=== PATIENT | male | born 1955 | race Caucasian/White ===

== ENCOUNTER → 2018-08-05 10:29 | Outpatient (CLI) | payer OTHER, SELFPAY | PROVIDERS: Family Provider Family Medicine; PCP Family Medicine; Referring Provider Internal Medicine Pulmonary Disease; Visit Provider Internal Medicine Pulmonary Disease | DX: J34.89 Other specified disorders of nose and nasal sinuses (principal) | CPT/HCPCS: 87077; 87081 ==

== ENCOUNTER → 2019-10-06 10:26 | Outpatient (CLI) | payer OTHER, SELFPAY ==
--- NOTE | 2019-10-06 10:40 | EKG12_ITS ---
Test Reason : PRE OP Blood Pressure : / mmHG Vent. Rate : 066 BPM Atrial Rate : 066 BPM P-R Int : 144 ms QRS Dur : 086 ms QT Int : 368 ms P-R-T Axes : 041 -10 035 degrees QTc Int : 385 ms Normal sinus rhythm Normal ECG Confirmed by KATARZYNA PEÑA, BRITTANEY ([id number]), senior technical editor LIDA MCGINNIS ([id number]) on 10/07/2019 1:05:29 PM Referred By: Rony Gutierrez Confirmed By:BRITTANEY COLÓN MD
[2019-10-06 11:06] LABS: Hemoglobin 15.3 g/dL (13.0-16.5); Mean Corpuscular Hgb 30.7 pg (27.0-32.0); Mean Corpuscular Volume 90.2 fL (80-94); Mean Platelet Vol. 10.9 fl (6.2-12.0); Platelet Count 171 K/mm3 (150-450); RBC Distribution Width CV 12.8 % (11.6-14.6); RBC Distribution Width SD 41.4 fl (35.1-43.9); Red Blood Count 4.99 M/mm3 (4.6-6.2); White Blood Count 5.5 K/mm3 (4.4-11.0)
[2019-10-06 11:43] LABS: Anion Gap 4 (5-15); BUN 18 mg/dL (7-18); BUN/Creat Ratio 18.4 RATIO (10-20); Calcium,Total 8.8 mg/dL (8.5-10.1); Chloride 100 mmol/L (98-107); Creatinine, Serum 0.98 mg/dL (0.70-1.30); EST Glomerular Filtration Rate 82 mL/min (>60); Est Glom Filt Rate - Afr Amer 99 mL/min (>60); Glucose 179 mg/dL (74-106); Potassium 3.9 mmol/L (3.5-5.1); Sodium Level 137 mmol/L (136-145)
== END ==
PROVIDERS: Referring Provider Orthopaedic Surgery; Visit Provider Orthopaedic Surgery
DX: Z01.818 Encounter for other preprocedural examination (principal); Z01.810 Encounter for preprocedural cardiovascular examination
CPT/HCPCS: 36415; 80048; 85027; 93005

== ENCOUNTER → 2019-10-16 09:43 | Outpatient (CLI) | payer OTHER, SELFPAY | PROVIDERS: Visit Provider Orthopaedic Surgery | DX: Z11.59 Encounter for screening for other viral diseases (principal) | CPT/HCPCS: 87635; 94799; U0003 ==

== ENCOUNTER 2019-11-15 12:48 | Emergency (ER) | payer OTHER, SELFPAY ==
[2019-11-15 12:49] VITALS: BP 134/76; PULSE 70; RESP 16; TEMP 36.2; O2SAT 95; BMI 31.6
--- NOTE | 2019-11-15 12:59 | VDLE_ITS ---
Reason For Study: swelling RIGHT GSV is normal. CFV is compressible, spontaneous, phasic, competent and demonstrates normal augmentation. FV is compressible, spontaneous, phasic, competent and demonstrates normal augmentation. POP V is compressible, spontaneous, phasic, competent and demonstrates normal augmentation. T/P Trunk is compressible. PTV is compressible. RT PerV is compressible. Heterogeneous area behind the knee measureing 2.02 x 4.4 cm in short. Area is nonvascular. Procedure Exam performed portable in ED. The exam was abbreviated due to the COVID 19 protocol. The exam was diagnostic. A preliminary report was called and/or faxed to Dr. Lam. Interpretation Summary Deep veins of the right lower extremity are patent and compressible segmentally. There is no evidence of right lower extremity deep vein thrombosis. Valvular competence appears intact within the proximal deep venous system on the right . The right great saphenous vein appears patent and compressible segmentally. A non-vascular, heterogeneous structure is noted in the right popliteal space, measuring 2.02 cm x 4.4 cm. This may represent a popliteal cyst. Clinical correlation is advised. Ordering Physician: Solis Lam Performed By: Chris Rojas, RVT
--- NOTE | 2019-11-15 13:07 | ED.VIS.GEN ---
History of Present Illness Chief Complaint: Lower Extremity Injury Onset: Today Narrative: Patient is approximately 3 weeks postoperative from a left arthroscopic right knee surgery (October 20). He states for the past 3 days he has had swelling and pain in the right calf and leg down to his foot. He states he is also been diagnosed with a Mckinney's cyst. He states that it is less intense in the calf than it has been. 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 Past Medical History - Allergies and Home Meds Allergies/Adverse Reactions: Allergies Iodinated Contrast Media [CONTRASTS] Allergy (Verified 11/15/19 12:52) Itching sulfamethoxazole [From Bactrim] Allergy (Verified 11/15/19 12:52) Hives trimethoprim [From Bactrim] Allergy (Verified 11/15/19 12:52) Hives Primary Care Physician: Owen Vargas [Other] Smoking Status: Never smoker Review of Systems General: Denies: Chills, Fever, Sweats Eyes: Denies: Visual changes - bilaterally, Diplopia ENT: Denies: Rhinorrhea, Sore throat Cardiovascular: Denies: Chest pain, Palpitations Respiratory: Denies: Dyspnea, Cough, Dyspnea on exertion Gastrointestinal: Denies: Abdominal pain, Nausea, Vomiting, Diarrhea, Melena, Hematochezia Genitourinary: Denies: Dysuria, Hematuria, Frequency Musculoskeletal: Reports: Swelling, Extremity Pain. Denies: Back pain Skin: Denies: Rash, Wounds Neurological: Denies: Headache, Weakness, Numbness Physical Exam Vital Signs/Narrative: Vital Signs Temp Pulse Resp BP Pulse Ox 11/15/19 12:49 97.2 F L 70 16 134/76 H 95 Inital Vital Signs reviewed: Yes General: Well nourished, Well developed, No Acute Distress Head: Normocephalic, Atraumatic Eyes: Perrl, EOMI ENT: Moist mucous membranes, No rhinorrhea Neck: Supple, Nontender Cardiovascular: Regular rate, Regular rhythm, No murmurs Respiratory: No distress, CTA bilaterally, Chest nontender Abdomen: Soft, Nontender, Nondistended, Normal bowel sounds Back: Nontender, Normal Inspection Extremities: Tenderness, Edema, Calf Tenderness - Right calf tenderness and swelling. Surgical incisions appear clean dry and intact and well-healing., - - There appears to be a fullness in the posterior knee consistent with a Mckinney's cyst Skin: Normal color, No rash Neurological: Alert, Oriented x3, Cranial nerves II-XII grossly intact, Normal Strength, Normal Sensation Psychological: Normal affect, Normal Mood Diagnostic/Tx/Re-eval - Medical Decision Making Duplex ultrasound was negative for DVT. Patient will be discharged home to follow-up with orthopedics. ED Disposition - Plan for ED Patient: Disposition: Home or Assisted Living Diagnosis: Calf swelling, Right calf pain Instructions: ED Peripheral Edema, Unilateral, ED Cyst Mckinney Referrals: Jim Mayen MD [STAFF PHYSICIAN] - (call to arrange follow up)
== END 2019-11-15 14:12 | disposition home or self-care (01) ==
LOC: ED 13:55
PROVIDERS: Emergency Provider Emergency Medicine
DX: M79.661 Pain in right lower leg (principal); M79.89 Other specified soft tissue disorders
CPT/HCPCS: 93971; 99282

== ENCOUNTER → 2024-07-31 | Outpatient (CLI) | payer MEDICARE, SELFPAY ==
[2024-07-31] MEDS: Lidocaine 2% (5ml sdv) 5 ML VIAL.MPF INFILT (10:55)
[2024-07-31] MEDS: Betamethasone/Betamethasone 30 MG/5 ML Vial 12 MG IM (11:00)
[2024-07-31] MEDS: Lidocaine 1% (5 ml sdv) 5 ML Vial 4 ML OPERA.SITE (11:00)
--- NOTE | 2024-07-31 11:40 | US_ITS ---
PROCEDURE: NEEDLE PLACEMENT 07/31/2024 REASON FOR EXAM: Advanced osteoarthritis, with severe joint space narrowing and pain. TECHNIQUE: Ultrasound-guided right glenohumeral joint injection was performed. Following informed consent, and using standard sterile technique, a 22 gauge spinal needle was placed under sonographic guidance in the right glenohumeral joint. A combination 2 mL (12 mg) betamethasone and 4 mL 1% lidocaine was instilled into the joint under sonographic guidance. No complication was encountered. The patient indicated significant improvement in pain and limited mobility of the right shoulder joint following injection. COMPARISON: None. US/Needle Placement IMPRESSION: Successful steroid and local anesthetic injection into the right glenohumeral j oint, under sonographic guidance. The patient indicated significant symptomatic improvement initially, following the injection. Reading Location: [place] [id number]
== END | disposition home or self-care (01) ==
PROVIDERS: Referring Provider Specialist; Visit Provider Specialist
DX: M19.111 Post-traumatic osteoarthritis, right shoulder (principal); M25.511 Pain in right shoulder
CPT/HCPCS: 20611; 76942; J0702